=== PATIENT | male | born 1970 | race Caucasian/White ===

== ENCOUNTER → 2021-02-23 | Outpatient (CLI) | payer BC ==
[~2021-02-23] MED LIST: ATENOLOL25 MG PO; ATIVAN0.5 MG PO; BACTRIM DS 8001 TA1 PO; CEPHALEXIN500 M1 PO; CLARITIN10 MG PO; HYDROCHLOROTHIA25 M1 PO; KEFLEX500 M1 PO; LISINOPRIL AND1 TA1; NAPROSYN375 MG PO; TRAMADOL HCL50 MG PO; WYMOX500 MG PO; ZITHROMAX Z PA250 MG PO
== END | disposition home or self-care (01) ==
LOC: US 09:55
PROVIDERS: ATTEND Nurse Practitioner Family
DX: R10.10 Upper abdominal pain, unspecified (principal); R10.33 Periumbilical pain

== ENCOUNTER → 2021-09-20 | Outpatient (CLI) | payer BC | END | disposition home or self-care (01) | LOC: RAD 15:28 | PROVIDERS: ATTEND Nurse Practitioner Family | DX: J02.9 Acute pharyngitis, unspecified (principal) ==

== ENCOUNTER → 2022-02-07 | Outpatient (CLI) | payer BC | END | disposition home or self-care (01) | LOC: RAD 16:05 | PROVIDERS: ATTEND Nurse Practitioner Family | DX: J34.89 Other specified disorders of nose and nasal sinuses (principal) ==

== ENCOUNTER 2022-08-03 06:10 | Emergency (ER) | payer BC ==
[~2022-08-03] VITALS: Ht 180.3 cm; Wt 131.5 kg
[2022-08-03 06:42] LABS: BILIRUBIN Negative (Negative); BLOOD 3+ (Negative); CLARITY Clear (Clear); COLOR Dark Yellow (Yellow); GLUCOSE 3+ (Negative); KETONE Negative (Negative); LEUKO ESTERASE 2+ (Negative); NITRITE Positive (Negative); PH 5.5 (4.5-8.0)
[2022-08-03 06:52] LABS: RBC TNTC rbc/hpf (0-2); WBC TNTC wbc/hpf (0-5)
== END 2022-08-03 07:03 | disposition home or self-care (01) ==
LOC: ED 06:10
PROVIDERS: Internal Medicine
DX: R33.9 Retention of urine, unspecified (principal); N39.0 Urinary tract infection, site not specified; Z79.899 Other long term (current) drug therapy; Z88.1 Allergy status to other antibiotic agents; Z88.8 Allergy status to other drugs, medicaments and biological substances

== ENCOUNTER 2022-08-03 23:36 | Emergency (ER) | payer BC ==
[~2022-08-03] VITALS: Ht 182.8 cm; Wt 113.4 kg
== END 2022-08-04 00:44 | disposition home or self-care (01) ==
LOC: ED 23:36
DX: R33.9 Retention of urine, unspecified (principal); Z88.1 Allergy status to other antibiotic agents; Z79.899 Other long term (current) drug therapy; Z90.89 Acquired absence of other organs

== ENCOUNTER → 2022-09-05 | Outpatient (CLI) | payer BC | END | disposition home or self-care (01) | LOC: RAD 09:44 | PROVIDERS: ATTEND Urology | DX: N20.0 Calculus of kidney (principal); M47.814 Spondylosis without myelopathy or radiculopathy, thoracic region; M47.817 Spondylosis without myelopathy or radiculopathy, lumbosacral region; I87.8 Other specified disorders of veins ==

== ENCOUNTER → 2022-10-17 | Outpatient (CLI) | payer BC ==
[2022-10-17 16:21] LABS: BASO # 0.1 10*3/uL (0.0-0.1); BASO % 0.9 % (0.0-1.0); EOS # 0.1 10*3/uL (0.0-0.4); EOS % 1.4 % (1.0-4.0); HEMATOCRIT 43.2 % (42.0-52.0); LYMPH # 2.6 10*3/uL (1.3-4.4); LYMPH % 25.4 % (27.0-41.0); MEAN CELL VOLUME 85.9 fl (80.0-94.0); MEAN CORPUSCULAR HGB CONC 32.6 g/dl (33.0-37.0); MEAN PLATELET VOLUME 9.6 fl (9.6-12.3); MONO # 0.7 10*3/uL (0.1-1.0); MONO % 7.3 % (3.0-9.0); NEUT # 6.5 10*3/uL (2.3-7.9); PLATELET COUNT AUTOMATED 314 10*3/uL (130-400); RED BLOOD COUNT 5.03 10*6/uL (4.50-5.90); RED CELL DISTRI WIDTH 13.4 % (0-14.5); WHITE BLOOD COUNT 10.2 10*3/uL (4.8-10.8)
[2022-10-17 16:31] LABS: CLARITY Clear (Clear); COLOR Yellow (Yellow)
[2022-10-17 16:32] LABS: BILIRUBIN Negative (Negative); BLOOD Negative (Negative); GLUCOSE Negative (Negative); KETONE Negative (Negative); NITRITE Negative (Negative); SPECIFIC GRAVITY 1.015 (1.001-1.030); UROBILINOGEN 0.2 E.U./dl (0.0-1.0)
[2022-10-17 16:33] LABS: LEUKO ESTERASE Negative (Negative)
[2022-10-17 16:40] LABS: CALCIUM OXALATE CRYSTALS Trace; EPITHELIAL CELLS 0-2; WBC 0-2 wbc/hpf (0-5)
[2022-10-17 16:42] LABS: ALKALINE PHOSPHATASE 55 U/L (46-116); BUN 15 mg/dl (9-23); CHLORIDE 102 mmol/L (98-107); POTASSIUM 4.1 mmol/L (3.4-5.1); SGPT/ALT 16 U/L (10-49); SODIUM 136 mmol/L (136-145); T3 UPTAKE 37.3 % (22.4-36.7); THYROXINE (T4) TOTAL 7.2 ug/dl (4.5-10.9); TOTAL PROTEIN 6.8 gm/dL (6.0-8.0)
[2022-10-21 21:06] LABS: FREE PSA 0.148 ng/mL (.)
== END | disposition home or self-care (01) ==
LOC: LAB 14:53 → US 15:00
PROVIDERS: ATTEND Urology
DX: N20.0 Calculus of kidney (principal); R31.9 Hematuria, unspecified

== ENCOUNTER → 2022-10-25 | Outpatient (CLI) | payer BC | END | disposition home or self-care (01) | LOC: RAD 14:11 | PROVIDERS: ATTEND Nurse Practitioner Family | DX: R06.02 Shortness of breath (principal) ==